=== PATIENT | female | born 1995 | race African-American/Black ===

== ENCOUNTER 2022-12-04 03:46 | Emergency (ER) | payer MEDICAID ==
[~2022-12-04] VITALS: Ht 167.6 cm; Wt 82.5 kg
[2022-12-04 03:55] VITALS: BP 125/75
== END 2022-12-04 05:11 | disposition home or self-care (01) ==
LOC: ER 03:46
DX: T16.1XXA Foreign body in right ear, initial encounter (principal); X58.XXXA Exposure to other specified factors, initial encounter; Y93.89 Activity, other specified; Y92.89 Other specified places as the place of occurrence of the external cause; Y99.8 Other external cause status
CPT/HCPCS: 69200; 99284; Z7610